=== PATIENT | female | born 1960 | race Caucasian/White ===

== ENCOUNTER 2016-11-12 20:03 | Emergency (ER) | payer BC ==
[~2016-11-12] VITALS: Ht 154.9 cm; Wt 79.4 kg
[~2016-11-12 20:03] MED LIST: AMOX500C3 PO
[2016-11-12 20:10] VITALS: TEMP 36.6; Ht 154.9 cm; Wt 79.4 kg
[2016-11-12] MEDS ORDERED: ALBUT/IPRATROP 3MG/0.5MG NEB 3 ML VIAL INH STA ×2 (20:56→22:21)
[2016-11-12] MEDS ORDERED: METHYLPREDNISOLONE 125 MG VIAL IV STA (20:59)
[2016-11-12] MEDS ORDERED: HYDROCODONE/HOMATROPINE SYRUP 5MG/1.5MG 5ML UDP PO STA (20:59)
[2016-11-12 21:20] LABS: BASO % 0.3 %; BASO ABS # 0.02 K/uL (0-0.2); COMPLETE YES; EOS % 3.6 %; HEMATOCRIT 43.3 % (37-47); IG% 0.2 %; LYMPH % 27.6 %; LYMPH ABS # 1.78 K/uL (1.2-3.4); MEAN CELL VOLUME 95.4 fL (80-100); MEAN CORPUSCULAR HEMOGLOBIN 32.2 pg (25-34); MEAN CORPUSCULAR HGB CONC 33.7 g/dl (32-36); MEAN PLATELET VOLUME 9.8 fL (7.4-10.4); MONO % 5.9 %; NEUT % 62.4 %; PLATELET COUNT 195 K/uL (130-400); RED BLOOD COUNT 4.54 M/uL (4.2-5.4); WHITE BLOOD COUNT 6.46 K/uL (4.8-10.8)
--- NOTE | 2016-11-12 21:27 | DIAGNOSTIC IMAGING REPORT ---
CHEST ONE VIEW PORTABLE CLINICAL HISTORY: 56 years-old Female presenting with cough. TECHNIQUE: Portable upright AP view of the chest was obtained. COMPARISON: 11/24/2015. FINDINGS: Cardiomediastinal silhouette normal. Lungs and pleural spaces clear. Osseous structures normal. Upper abdomen normal. IMPRESSION: 1. No acute cardiopulmonary disease. Electronically signed by: Ap Apodaca M.D. 11/12/2016 9:25 PM Dictated Date/Time: 11/12/2016 9:25 PM
[2016-11-12 21:29] VITALS: O2SAT 96
[2016-11-12 21:37] LABS: ALT/SGPT 24 U/L (12-78); BLOOD UREA NITROGEN 17 mg/dl (7-18); BUN/CREATININE RATIO 14.3 (10-20); CALCIUM 8.6 mg/dl (8.5-10.1); CARBON DIOXIDE 29 mmol/L (21-32); CHLORIDE 107 mmol/L (98-107); GLUCOSE 104 mg/dl (70-99); POTASSIUM 4.2 mmol/L (3.5-5.1); SODIUM 141 mmol/L (136-145)
[2016-11-12 21:42] LABS: ALB/GLOB RATIO 1.5 (0.9-2); ALKALINE PHOSPHATASE 107 U/L (45-117); AST/SGOT 15 U/L (15-37)
[2016-11-12] MEDS ORDERED: AZITHROMYCIN 250 MG TAB PO STA (22:23)
[2016-11-12] MEDS ORDERED: AZIT250T5 PO (22:52)
[2016-11-12] MEDS ORDERED: PRED50TA PO (22:52)
[2016-11-12] MEDS ORDERED: ALBUTEROL HFA 8 GM INHALER INH ONE (23:00)
[2016-11-12 23:07] VITALS: BP 110/68; PULSE 83; O2SAT 95
--- NOTE | 2016-11-13 01:51 | EMERGENCY ROOM VISIT NOTE ---
History Report prepared by Fiorella: Ruma Ray Under the Supervision of: Dr. Ted Shelton M.D. First contact with patient: 20:48 Chief Complaint: RESPIRATORY PROBLEMS Stated Complaint: PNEUMONIA ,COUGH Nursing Triage Summary: pt c/o "pneumonia" symptoms since thrusday. associates cough with green sputum and fevers. states she has pain with cough. denies hx lung problems, states she is a smoker. reports hx of pneumonia. pt alert and oriented x4. breathing WNL. History of Present Illness The patient is a 56 year old female who presents to the Emergency Room with complaints of an episode of respiratory problems starting 3 days ago. The patient states that she has a cough. She reports that when she coughs she has a pain under her ribs that concerns her. She reports that it has continued to worsen. She states that the cough has been keeping her up at night. She notes that when she moves she becomes short of breath. She states that deep breathing makes it worse. The patient notes that she has a history of pneumonia and bronchitis. She states that she does smoke. The patient also complains of a rash from taking Ibuprofen. Pt denies LOC, headache, fevers, chills, diaphoresis , visual changes, neck pain, chest pain, nausea, vomiting, abdominal pain, back pain, melena, hematochezia, urinary symptoms, numbness, weakness, lymphadenopathy, rash, or other complaints. Source of History: patient Onset: 3 days ago Position: other (global) Quality: other (global) Timing: other (episode) Modifying Factors (Worsening): breathing (deep) Associated Symptoms: + cough, + SOB, + rash Review of Systems See HPI for pertinent positives and negatives. A total of ten systems were reviewed and were otherwise negative. Past Medical & Surgical Medical Problems: (1) Acute bronchitis (2) Finger fracture, right Family History Diabetes mellitus FH: brain aneurysm FHx: COPD (chronic obstructive pulmonary disease) Hypertension Social History Smoking Status: Current Every Day Smoker Alcohol Use: occasionally Marital Status: in relationship Housing Status: lives with family Occupation Status: employed Current/Historical Medications Scheduled Azithromycin (Zithromax), 250 MG PO DAILY Prednisone (Prednisone), 50 MG PO DAILY Allergies Coded Allergies: Ibuprofen (Verified Allergy, Unknown, rash, 11/12/16) Physical Exam Vital Signs Date Time Temp Pulse Resp B/P (MAP) Pulse Ox O2 Delivery O2 Flow Rate FiO2 11/12/16 23:07 83 18 110/68 95 11/12/16 21:29 97 Room Air 11/12/16 21:29 96 Room Air 11/12/16 21:29 74 18 152/89 95 Room Air 11/12/16 20:53 76 11/12/16 20:35 96 Room Air 11/12/16 20:10 36.6 78 20 165/102 97 Room Air Physical Exam GENERAL: Awake, alert, well-appearing, in no distress HENT: Normocephalic, atraumatic. Oropharynx unremarkable. EYES: Normal conjunctiva. Sclera non-icteric. NECK: Supple. No nuchal rigidity. FROM. No JVD. RESPIRATORY: Bilateral wheezing. CARDIAC: Regular rate, normal rhythm. Extremities warm and well perfused. Pulses equal. ABDOMEN: Soft, non-distended. No tenderness to palpation. No rebound or guarding. No masses. RECTAL: Deferred. MUSCULOSKELETAL: Chest examination reveals no tenderness. The back is symmetrical on inspection without obvious abnormality. There is no CVA tenderness to palpation. No joint edema. LOWER EXTREMITIES: Calves are equal size bilaterally and non-tender. No edema. No discoloration. NEURO: Normal sensorium. No sensory or motor deficits noted. SKIN: No jaundice noted. Fine red rash on anterior chest. Medical Decision & Procedures ER Provider Diagnostic Interpretation: Radiology results as stated below per my review and radiologist interpretation: CHEST ONE VIEW PORTABLE CLINICAL HISTORY: 56 years-old Female presenting with cough. TECHNIQUE: Portable upright AP view of the chest was obtained. COMPARISON: 11/24/2015. FINDINGS: Cardiomediastinal silhouette normal. Lungs and pleural spaces clear. Osseous structures normal. Upper abdomen normal. IMPRESSION: 1. No acute cardiopulmonary disease. Electronically signed by: Ap Apodaca M.D. 11/12/2016 9:25 PM Dictated Date/Time: 11/12/2016 9:25 PM Laboratory Results 11/12/16 21:10 Red Blood Count 4.54, Mean Corpuscular Volume 95.4, Mean Corpuscular Hemoglobin 32.2, Mean Corpuscular Hemoglobin Concent 33.7, Mean Platelet Volume 9.8, Neutrophils (%) (Auto) 62.4, Lymphocytes (%) (Auto) 27.6, Monocytes (%) (Auto) 5.9, Eosinophils (%) (Auto) 3.6, Basophils (%) (Auto) 0.3, Neutrophils # (Auto) 4.04, Lymphocytes # (Auto) 1.78, Monocytes # (Auto) 0.38, Eosinophils # (Auto) 0.23, Basophils # (Auto) 0.02 11/12/16 21:10 Test 11/12/16 21:10 White Blood Count 6.46 K/uL (4.8-10.8) Red Blood Count 4.54 M/uL (4.2-5.4) Hemoglobin 14.6 g/dL (12.0-16.0) Hematocrit 43.3 % (37-47) Mean Corpuscular Volume 95.4 fL (80-100) Mean Corpuscular Hemoglobin 32.2 pg (25-34) Mean Corpuscular Hemoglobin Concent 33.7 g/dl (32-36) Platelet Count 195 K/uL (130-400) Mean Platelet Volume 9.8 fL (7.4-10.4) Neutrophils (%) (Auto) 62.4 % Lymphocytes (%) (Auto) 27.6 % Monocytes (%) (Auto) 5.9 % Eosinophils (%) (Auto) 3.6 % Basophils (%) (Auto) 0.3 % Neutrophils # (Auto) 4.04 K/uL (1.4-6.5) Lymphocytes # (Auto) 1.78 K/uL (1.2-3.4) Monocytes # (Auto) 0.38 K/uL (0.11-0.59) Eosinophils # (Auto) 0.23 K/uL (0-0.5) Basophils # (Auto) 0.02 K/uL (0-0.2) RDW Standard Deviation 46.8 fL (36.4-46.3) RDW Coefficient of Variation 13.5 % (11.5-14.5) Immature Granulocyte % (Auto) 0.2 % Immature Granulocyte # (Auto) 0.01 K/uL (0.00-0.02) Anion Gap 5.0 mmol/L (3-11) Est Creatinine Clear Calc Drug Dose 48.7 ml/min Estimated GFR () 57.7 Estimated GFR (Non- 49.8 BUN/Creatinine Ratio 14.3 (10-20) Calcium Level 8.6 mg/dl (8.5-10.1) Total Bilirubin 0.4 mg/dl (0.2-1) Aspartate Amino Transf (AST/SGOT) 15 U/L (15-37) Alanine Aminotransferase (ALT/SGPT) 24 U/L (12-78) Alkaline Phosphatase 107 U/L (45-117) Troponin I < 0.015 ng/ml (0-0.045) Total Protein 6.7 gm/dl (6.4-8.2) Albumin 4.0 gm/dl (3.4-5.0) Globulin 2.7 gm/dl (2.5-4.0) Albumin/Globulin Ratio 1.5 (0.9-2) Laboratory results reviewed by me Medications Administered Medications (Trade) Dose Ordered Sig/Wang Route Start Time Stop Time Status Last Admin Dose Admin Albuterol/ Ipratropium (Duoneb) 3 ml NOW STAT INH 11/12/16 20:56 11/12/16 20:58 DC 11/12/16 21:35 3 ML Methylprednisolone Sodium Succinate (Solu-Medrol IV) 125 mg NOW STAT IV 11/12/16 20:59 11/12/16 21:01 DC 11/12/16 21:33 125 MG Hydrocodone Bit/ Homatropine Methylb (Hycodan Syrup) 5 ml NOW STAT PO 11/12/16 20:59 11/12/16 21:01 DC 11/12/16 21:31 5 ML Albuterol/ Ipratropium (Duoneb) 3 ml NOW STAT INH 11/12/16 22:21 11/12/16 22:23 DC 11/12/16 22:33 3 ML Prednisone (PredniSONE TAB) 60 mg NOW STAT PO 11/12/16 22:23 11/12/16 22:24 DC 11/12/16 22:33 60 MG Azithromycin (Zithromax Tab) 500 mg NOW STAT PO 11/12/16 22:23 11/12/16 22:24 DC 11/12/16 22:32 500 MG Albuterol (Ventolin Hfa Inhaler) 2 puffs NOW ONCE INH 11/12/16 23:00 11/12/16 23:01 DC 11/12/16 23:05 2 PUFFS ECG Indication: SOB/dyspnea Rate (beats per minute): 73 Rhythm: normal sinus Findings: no acute ischemic change, no ectopy ED Course 2053: The patient was evaluated in room C10. A complete history and physical exam was performed. 2055: Ordered Duoneb 3 ml INH. 2058: Ordered Hycodan Syrup 5 ml PO, Solu-Medrol IV 125 mg IV. 2220: Ordered Duoneb 3 ml INH. 2222: Ordered Zithromax Tab 500 mg PO, Prednisone 60 mg PO. 2233: I reevaluated the patient and she is feeling better. 2299: Order Albuterol 2 puffs INH. 2318: I reevaluated the patient. Discussed results and discharge instructions: she verbalized understanding and agreement. The patient is ready for discharge. Medical Decision Triage Nursing notes reviewed. The patient's presentation and history were concerning for cough and respiratory issues. Etiologies such as pneumonia, COPD, reactive airway disease, CHF, cardiac ischemia, pulmonary embolism, pneumothorax, infections, as well as others were entertained. Patient was evaluated. She was wheezing. She was given 2 nebulizer treatments , Solu-Medrol and prednisone. The patient was doing much better on reassessment. She was also treated with Zithromax. Her chest x-ray did not reveal any acute findings. Her CBC, chemistry panel, cardiac markers and ECG were negative. The patient is a smoker. She has a family history COPD. I believe that she is dealing with early signs of COPD. She'll be treated with Zithromax, prednisone, and albuterol MDI. By the evaluation outlined above other emergent etiologies such as those listed in the differential, as well as others, were deemed relatively unlikely. The patient was educated about the findings as listed above. All questions were answered and the patient was pleased with the treatment. Return instructions were outlined and the patient was discharged in stable condition. The patient was referred to her PCP for follow-up for a recheck of the current condition. Impression Primary Impression: Cough Additional Impressions: Reactive airway disease Tobacco abuse Scribe Attestation The scribe's documentation has been prepared under my direction and personally reviewed by me in its entirety. I confirm that the note above accurately reflects all work, treatment, procedures, and medical decision making performed by me. Departure Information Dispostion Home / Self-Care Prescriptions Azithromycin (ZITHROMAX) 250 Mg Tab 250 MG PO DAILY, #4 TAB Prov: Ted Shelton MD 11/12/16 Prednisone (Prednisone) 50 Mg Tab 50 MG PO DAILY for 4 Days, #4 TAB Prov: Ted Shelton MD 11/12/16 Referrals No Doctor, Assigned (PCP) Forms HOME CARE DOCUMENTATION FORM, IMPORTANT VISIT INFORMATION, WORK / SCHOOL INSTRUCTIONS Patient Instructions My [facility] Additional Instructions Stop smoking Albuterol Inhaler: Take 2 puffs four times daily for five days, then as needed. Prednisone 50mg: Once daily until the prescription is finished. It is best to take this earlier in the day as some patients note occasional difficulty falling asleep when taken in the late evening. Azithromycin(Zithromax) 250mg: Take one a day for 4 additional days. All antibiotics can cause diarrhea. If this occurs and you feel worse or it does not resolve in 1-2 days follow up with your doctor or return to the Emergency Department as this could be signs of serious underlying problems. Any medication can cause an allergic reaction, stop the pills immediately and return to the ER for rash, hives, breathing difficulties, or swelling. Acetaminophen(Tylenol) may be used for fever or pain. Use 1000mg every six hours as needed. Avoid using more than 4000mg in a 24 hour period. Rest and drink plenty of fluids. Review the package insert for all your medications. This is necessary as important health information is provided for your benefit and current care. Avoid smoke/smoking, fumes, dust, or any triggers in the past that may have affected your breathing. Continue current medications. Return to the ER for chest pain, difficulty breathing, fevers, vomiting, worsening of your condition, or as needed. Follow up with your primary physician this week for a recheck of your current condition. Problem Qualifiers
== END 2016-11-12 23:07 | disposition home or self-care (01) ==
LOC: C.EDB 20:03 → C.EDC 23:07
DX: R05 Cough (principal); J45.909 Unspecified asthma, uncomplicated; F17.200 Nicotine dependence, unspecified, uncomplicated; Z83.3 Family history of diabetes mellitus; Z82.49 Family history of ischemic heart disease and other diseases of the circulatory system

== ENCOUNTER → 2017-06-15 | Outpatient (CLI) | payer BC ==
--- NOTE | 2017-06-15 11:22 | DIAGNOSTIC IMAGING REPORT ---
C-SPINE ROUTINE 4 OR 5 VIEWS CLINICAL HISTORY: M54.2 Neck [id number] COMPARISON STUDY: No previous studies for comparison. FINDINGS: The prevertebral soft tissues are normal. No fractures or subluxations are visualized. There are degenerative changes at the C5-C6, and C6-7 levels. There is minor bilateral foraminal encroachment secondary to uncinate spurs at these 2 levels. IMPRESSION: Degenerative changes at the C5-6 and C6-7 levels. Electronically signed by: Gregory Schwartz M.D. 06/15/2017 11:20 AM Dictated Date/Time: 06/15/2017 11:19 AM
== END | disposition home or self-care (01) ==
LOC: C.RAD1850 11:11
PROVIDERS: ATTEND Internal Medicine
DX: M54.2 Cervicalgia (principal)

== ENCOUNTER → 2017-06-15 | Outpatient (CLI) | payer BC ==
[2017-06-15 12:41] LABS: BASO % 0.4 %; BASO ABS # 0.03 K/uL (0-0.2); EOS % 2.8 %; HEMATOCRIT 45.7 % (37-47); HEMOGLOBIN 15.7 g/dL (12.0-16.0); IG# 0.01 K/uL (0.00-0.02); LYMPH % 32.2 %; LYMPH ABS # 2.32 K/uL (1.2-3.4); MEAN CELL VOLUME 93.6 fL (80-100); MEAN CORPUSCULAR HEMOGLOBIN 32.2 pg (25-34); MEAN CORPUSCULAR HGB CONC 34.4 g/dl (32-36); MEAN PLATELET VOLUME 10.5 fL (7.4-10.4); MONO % 6.7 %; MONO ABS # 0.48 K/uL (0.11-0.59); NEUT % 57.8 %; NEUT ABS # 4.17 K/uL (1.4-6.5); PLATELET COUNT 258 K/uL (130-400); RED CELL DISTRIBUTION WIDTH CV 13.3 % (11.5-14.5); RED CELL DISTRIBUTION WIDTH SD 45.6 fL (36.4-46.3); WHITE BLOOD COUNT 7.21 K/uL (4.8-10.8)
[2017-06-15 12:47] LABS: ALBUMIN 4.3 gm/dl (3.4-5.0); ALT/SGPT 40 U/L (12-78); AST/SGOT 24 U/L (15-37); BLOOD UREA NITROGEN 14 mg/dl (7-18); CALCIUM 8.9 mg/dl (8.5-10.1); CARBON DIOXIDE 31 mmol/L (21-32); CREATININE 0.83 mg/dl (0.60-1.20); GLUCOSE 90 mg/dl (70-99); SODIUM 140 mmol/L (136-145)
[2017-06-15 12:57] LABS: ALKALINE PHOSPHATASE 128 U/L (45-117); TOTAL PROTEIN 7.2 gm/dl (6.4-8.2)
== END | disposition home or self-care (01) ==
LOC: C.LABBFT 10:14
PROVIDERS: ATTEND Internal Medicine
DX: Z00.00 Encounter for general adult medical examination without abnormal findings (principal); F32.9 Major depressive disorder, single episode, unspecified; R53.83 Other fatigue; I10 Essential (primary) hypertension; M54.2 Cervicalgia

== ENCOUNTER → 2017-09-27 | Outpatient (CLI) | payer BC ==
--- NOTE | 2017-09-27 14:55 | MAMMOGRAPHY REPORT ---
BILATERAL DIGITAL SCREENING MAMMOGRAM TOMOSYNTHESIS WITH CAD: 09/27/2017 CLINICAL HISTORY: Routine screening. TECHNIQUE: The study was acquired using full field digital technology and interpreted from soft copy. Breast tomosynthesis in addition to standard 2D mammography was performed. Current study was also ev aluated with a Computer Aided Detection (CAD) system. COMPARISON: Comparison is made to exams dated: 12/05/2011 mammogram, 07/22/2010 mammogram, 07/22/2010 u ltrasound, 12/14/2009 mammogram, 12/14/2009 ultrasound, and 12/07/2009 mammogram - [facility]. BREAST COMPOSITION: There are scattered areas of fibroglandular density in both breasts. FINDINGS: No suspicious masses, calcifications, or areas of architectural distortion are noted in either breast . There has been no significant interval change compared to prior exams. IMPRESSION: ACR BI-RADS CATEGORY 1: NEGATIVE There is no mammographic evidence of malignancy. A 1 year screening mammogram is recommended.( 019) The patient will receive written notification of the results. Some breast cancers are not detected with mammography. A negative mammographic report should not efrain y biopsy if a clinically suggestive mass is present. Melissa Goddard M.D. /:09/27/2017 14:33:33 Interior Painter: Haily Avendaño, [facility] letter sent: Normal 1/2 BI-RADS Code: ACR BI-RADS Category 1: Negative
== END | disposition home or self-care (01) ==
LOC: C.MAMM 08:42
PROVIDERS: ATTEND Obstetrics & Gynecology
DX: Z12.31 Encounter for screening mammogram for malignant neoplasm of breast (principal)